=== PATIENT | male | born 1960 | race Caucasian/White ===

== ENCOUNTER → 2016-09-29 | Outpatient (CLI) | payer BC ==
[~2016-09-29] MED LIST: ASPI81TA28 PO; ATOR10TA88 PO; COEN1CAP7 PO; MULT-506 PO; OMEG10007 PO
[2016-09-29 12:48] LABS: ALT/SGPT 44 U/L (12-78); AST/SGOT 16 U/L (15-37); BLOOD UREA NITROGEN 17 mg/dl (7-18); BUN/CREATININE RATIO 18.7 (10-20); CALCIUM 8.7 mg/dl (8.5-10.1); CARBON DIOXIDE 26 mmol/L (21-32); CHLORIDE 106 mmol/L (98-107); CHOLESTEROL 140 mg/dl (0-200); GLUCOSE 100 mg/dl (70-99); POTASSIUM 4.4 mmol/L (3.5-5.1); SODIUM 142 mmol/L (136-145); TRIGLYCERIDES 105 mg/dl (0-150); VERY LOW DENSITY LIPOPROT CALC 21 mg/dl
[2016-09-29 12:51] LABS: ALB/GLOB RATIO 1.2 (0.9-2); ALKALINE PHOSPHATASE 56 U/L (45-117); CHOLESTEROL/HDL RATIO 2.6; HDL CHOLESTEROL 54 mg/dl; LDL CHOLESTEROL CALCULATED 65 mg/dl
== END | disposition home or self-care (01) ==
LOC: C.LABBFT 07:55
PROVIDERS: ATTEND Internal Medicine
DX: E78.5 Hyperlipidemia, unspecified (principal); E55.9 Vitamin D deficiency, unspecified

== ENCOUNTER 2018-10-08 06:30 | Inpatient (IN) ==
--- NOTE | 2018-09-08 09:56 | Anesthesiology Consultation ---
Date of Service September 08, 2018 Assessment & Plan (1) Encounter for pre-operative examination: Chart Review Chart Review: Acceptable Risk for Surgery and Patient seen in Pre Admission Testing Teaching & Discussion Instructed NPO after midnight before surgery, except medications with 15 cc of water. Medication instructions provided according to the PAT guidelines. History Surgery Operation Date: 10/08/18 08:30 Proposed Procedures p Right Total Knee Replacement - Kirby Velez DO Height/Weight Height: 6 ft 5 in Weight: 115.9 kg Allergies Allergy/AdvReac Type Severity Reaction Status Date / Time No Known Allergies Allergy Verified 09/02/18 13:03 Medications Home Medications Medication Instructions Recorded Confirmed Last Taken aspirin 81 mg PO QPM 09/02/18 09/02/18 Unknown cholecalciferol (vitamin D3) 3 tab PO QAM 09/02/18 09/02/18 Unknown [Vitamin D3] coenzyme Q10 [Co Q-10] 200 mg PO QPM 09/02/18 09/02/18 Unknown simvastatin 10 mg PO PM 09/02/18 09/02/18 Unknown Past Medical History Medical History Hyperlipidemia takes meds d/t family history Osteoarthritis Past Surgical History Surgical History Hx of detached retina repair both Hx of hand surgery right Hx of knee surgery x3 right Past Anesthesia History No Hx of Anesthesia Complications and No Family Hx of Anesthesia Complications History of PONV No Motion Sickness Screening History of Motion Sickness: No Social History Smoking Status: Never smoker Do You Dip or Chew Tobacco: No Hx Alcohol Use: Yes alcohol intake frequency: holidays/special occasions only Hx Substance Use: No Exercise / Class Metabolic Activity II 4-5 Yardwork/Stairs/Walk up hill (no CP or SOB with 2 flights of stairs) Review of Systems Pt denies any recent chest pain, shortness of breath, palpitations, cough, fever or URI. +stomach flu late July and early august Physical Exam Vital Signs BP: 112/56 P: 83bpm SPO2: 96% RA T: 97.5 F R: 16 ENMT Mouth: + dental restorations (few crowns); no chipped teeth and no loose teeth Thyromental Distance: > or= 3.5 Finger Breadths (3.5) Mallampati Class: III Neck normal visual inspection and + thick neck; neck extension not limited Respiratory normal respiratory effort Auscultation: lungs clear to auscultation bilaterally Cardiovascular Rate/Rhythm: regular rate and regular rhythm Heart Sounds: no murmur Vessels: no carotid bruit Extremities: no edema Testing Electrocardiogram Date: 09/08/18 Findings: + NSR @ (77) NSIVCD. Compared to EKG from 10/09/11, no significant change was found. Chest X-Ray Date: 09/08/18 Findings: + NAD Laboratory Results 09/08/18 10:15 09/08/18 10:15 Blood Type A Positive 09/08/18 10:15 Antibody Screen NEGATIVE 09/08/18 10:15 PT 10.0 Seconds (9.0-12.0) 09/08/18 10:15 INR 1.0 (0.9-1.1) 09/08/18 10:15 APTT 25.6 Seconds (21.0-31.0) 09/08/18 10:15
--- NOTE | 2018-09-08 10:09 | PAT Medication Instructions ---
Medication Instructions Date of Service September 08, 2018 Home Medications aspirin 81 mg PO QPM cholecalciferol (vitamin D3) 3 tab PO QAM coenzyme Q10 [Co Q-10] 200 mg PO QPM simvastatin 10 mg PO PM STOP taking 2 weeks before surgery coenzyme Q10 [Co Q-10] 200 mg PO QPM DO NOT take the morning of surgery cholecalciferol (vitamin D3) 3 tab PO QAM Take evening before surgery aspirin 81 mg PO QPM simvastatin 10 mg PO PM *NOTHING TO EAT OR DRINK AFTER MIDNIGHT* Other Notes If you have any questions please call us at [phone] or [phone] or [phone] or [phone]
--- NOTE | 2018-09-08 10:35 | XRay Report ---
XR chest Pre-admission PA/Lat CLINICAL HISTORY: Preoperative chest COMPARISON STUDY: No previous studies for comparison. FINDINGS: The heart is normal in size. There is no failure. There is no focal pulmonary consolidation . There are no pleural effusions. There is an old right-sided rib fracture. A 1 cm density at the rig ht lateral lung base is felt to represent a summation.[ IMPRESSION: No active disease in the chest. Electronically signed by: Valentin Warner M.D. 09/08/2018 10:34 AM
[2018-09-08 10:59] LABS: Basophils # (auto) 0.04 K/uL (0-0.2); Basophils % (auto) 0.5 %; Eosinophils # (auto) 0.38 K/uL (0-0.5); Eosinophils % (auto) 4.5 %; Hematocrit (blood only) 44.5 % (42-52); Hemoglobin 13.9 g/dL (14.0-18.0); Immature Granulocytes # (auto) 0.02 K/uL (0.00-0.02); Immature Granulocytes % (auto) 0.2 %; Lymphocytes # (auto) 1.45 K/uL (1.2-3.4); Lymphocytes % (auto) 17.3 %; Mean Corpuscular Hgb Conc 31.2 g/dL (32-36); Mean Corpuscular Volume 85.9 fL (80-100); Mean Platelet Volume 9.8 fL (7.4-10.4); Monocytes # (auto) 0.62 K/uL (0.11-0.59); Monocytes % (auto) 7.4 %; Neutrophils # (auto) 5.85 K/uL (1.4-6.5); Neutrophils % (auto) 70.1 %; Platelet Count 394 K/uL (130-400); RDW Coefficient of Variation 14.8 % (11.5-14.5); RDW Standard Deviation 46.7 fL (36.4-46.3); Red Blood Count 5.18 M/uL (4.7-6.1); White Blood Count 8.36 K/uL (4.8-10.8)
[2018-09-08 11:09] LABS: Partial Thromboplastin Time 25.6 Seconds (21.0-31.0)
[2018-09-08 11:15] LABS: BUN Creatinine Ratio 10.1 (10-20); Calcium 8.9 mg/dl (8.5-10.1); Creatinine Clr Calc Pharmacy 108.7 ml/min; Est GFR (African American) 92.2; Est GFR (Non-African American) 79.5; Potassium 4.5 mmol/L (3.5-5.1)
--- NOTE | 2018-10-06 07:29 | History & Physical Report ---
Date of Service October 06, 2018 Assessment & Plan (1) Osteoarthritis of right knee: We will proceed with a right total knee arthroplasty. Postoperatively he will be started on aspirin for DVT prophylaxis and kept overnight in the hospital for postop medical management. He plans to use energy physical therapy upon discharge. Present on Admission?: Yes History of Present Illness Primary Care Provider: Amol Carter MD Bret is a pleasant 58-year-old male is been dealing with chronic increasing right knee pain for many years. He has a history of 2 patella fractures which were treated operatively by another provider. He then had a knee arthroscopy done by Dr. Sands 2011. He continues to have knee pain. Follow-up MRI of his knee in 2015 showed medial compartment arthritis and meniscus tears. I be giving him injections. Unfortunately injections are no longer helping. After failing extensive conservative treatment, he is elected to proceed with a right total knee arthroplasty. Allergies Allergy/AdvReac Type Severity Reaction Status Date / Time No Known Allergies Allergy Verified 09/02/18 13:03 Home Medications Home Medications Medication Instructions Recorded Confirmed Type aspirin 81 mg PO QPM 09/02/18 09/02/18 History cholecalciferol (vitamin D3) 3 tab PO QAM 09/02/18 09/02/18 History [Vitamin D3] coenzyme Q10 [Co Q-10] 200 mg PO QPM 09/02/18 09/02/18 History simvastatin 10 mg PO PM 09/02/18 09/02/18 History Past Med/Surg History Medical History Hyperlipidemia takes meds d/t family history Osteoarthritis Surgical History Hx of detached retina repair both Hx of hand surgery right Hx of knee surgery x3 right Social History Current Living Situation: Spouse Feels Safe at Home: Yes Safety Concerns: Feels Safe At This Time Smoking Status: Never smoker Do You Dip or Chew Tobacco: No Hx Alcohol Use: Yes Alcohol Intake Frequency: holidays/special occasions only Hx Substance Use: No Beliefs That Will Affect Care: None Preferred Language: Swazi Communication Ability: Effective
--- NOTE | 2018-10-06 07:32 | History & Physical Report ---
Date of Service October 06, 2018 Assessment & Plan (1) Osteoarthritis of right knee: We will proceed with a right total knee arthroplasty. Postoperatively he will be placed on aspirin for DVT prophylaxis. We will keep him overnight for postop medical management. He plans to use energy physical therapy upon discharge. Present on Admission?: Yes History of Present Illness Chief Complaint: Primary osteoarthritis of the right knee Primary Care Provider: Amol Carter MD Bret is a pleasant 58-year-old male is been doing chronic increasing right knee pain. He has a history of 2 patella fractures which were treated in the past by another physician. He then had a right knee scope in 2011. He continues to have knee pain. He had a follow-up MRI in 2015 which showed some medial compartment arthritis and a meniscus tear. I have given him multiple injections. Unfortunately he is still having a lot of knee pain. After failing extensive conservative treatment, he is elected proceed with a right total knee arthroplasty. Allergies Allergy/AdvReac Type Severity Reaction Status Date / Time No Known Allergies Allergy Verified 09/02/18 13:03 Home Medications Home Medications Medication Instructions Recorded Confirmed Type aspirin 81 mg PO QPM 09/02/18 09/02/18 History cholecalciferol (vitamin D3) 3 tab PO QAM 09/02/18 09/02/18 History [Vitamin D3] coenzyme Q10 [Co Q-10] 200 mg PO QPM 09/02/18 09/02/18 History simvastatin 10 mg PO PM 09/02/18 09/02/18 History Past Med/Surg History Medical History Hyperlipidemia takes meds d/t family history Osteoarthritis Surgical History Hx of detached retina repair both Hx of hand surgery right Hx of knee surgery x3 right Social History Current Living Situation: Spouse Feels Safe at Home: Yes Safety Concerns: Feels Safe At This Time Smoking Status: Never smoker Do You Dip or Chew Tobacco: No Hx Alcohol Use: Yes Alcohol Intake Frequency: holidays/special occasions only Hx Substance Use: No Beliefs That Will Affect Care: None Preferred Language: Pakistani Communication Ability: Effective Review of Systems All systems reviewed & are unremarkable except as noted in HPI & below Physical Exam 2 Constitutional: WD/WN, vitals as above Eyes: PERRL, conjunctivae normal, anicteric sclerae ENMT: external ear and nose normal, oropharynx normal Neck: trachea midline, no thyromegaly Respiratory: normal respiratory effort Cardiovascular: RRR, no murmur, no edema Gastrointestinal (Abdomen): normal bowel sounds, soft, nontender, no hepatosplenomegaly Musculoskeletal: On physical examination of the right knee there is a trace effusion. There is near full range of motion and no evidence of instability. There is significant tenderness palpation along the medial and lateral joint lines and over the distal femoral condyles. Psychiatric: A+Ox3, euthymic affect Results & Data Diagnostic Findings Radiographs of the right knee demonstrate advanced osteoarthritis with joint space narrowing osteophyte formation and [id number] articulation.
[~2018-10-08 06:30] MED LIST changes: +ACETAMINOPHEN 500 MG TAB PO SCH; -ASPI81TA28 PO; -ATOR10TA88 PO; +CEFAZOLIN 2000MG 2,000 MG/15 ML SYR IV SCH; -COEN1CAP7 PO; +FAMOTIDINE 20 MG TAB PO SCH; +GABAPENTIN 300 MG x 2 PO SCH; +LR 60ML/HR IV SCH; -MULT-506 PO; -OMEG10007 PO; +ROPIVACAINE 0.5% HCL/PF 150 MG, BUPIVACAINE 0.5% MPF 30 ML, EPINEPHrine 30MG/30ML (OR U... INFIL SCH; +TRANEXAMIC ACID 1,000 MG **IV Intra-op IV SCH; +TRANEXAMIC ACID 1,000 MG **IV Pre-op IV SCH
[2018-10-08] MEDS ORDERED: BUPIVACAINE 0.5 % 5 MG/1 ML PF 10ML VIAL ONE (06:36)
[2018-10-08] MEDS ORDERED: ROPIVACAINE 0.5% 5 MG/ML 30 ML VIAL ONE (06:37)
--- NOTE | 2018-10-08 06:42 | History & Physical Bridge Note ---
Date of Service October 08, 2018 History & Physical Bridge Note I have examined the patient, reviewed the History & Physical and in the interval since the performance of the History & Physical I have noted the following changes of clinical significance: no changes noted
[2018-10-08] MEDS: LR 500ML BOLUS, THEN 15ML/HR IV SCH ×2 (07:12→14:09)
[2018-10-08] MEDS ORDERED: PROPOFOL IV EMULSION 10 MG/ML 20 ML VIAL IV ONE (07:13)
[2018-10-08] MEDS ORDERED: LIDOCAINE HCL 2% 2 ML VIAL/AMP(20MG/ML) INFIL ONE (07:13)
[2018-10-08] MEDS ORDERED: MIDAZOLAM HCL 1 MG/ML 2ML VIAL ONE ×3 (07:14→09:25)
[2018-10-08] MEDS ORDERED: fentaNYL citrate 100 MCG/2 ML VIAL ONE (07:14)
[2018-10-08] MEDS ORDERED: ORTHO JOINT ANESTHETIC ONE (07:22)
[2018-10-08] MEDS ORDERED: POVIDONE-IODINE OP SOLN 30 ML BTL ONE (07:23)
[2018-10-08] MEDS ORDERED: PHENYLEPHRINE 100MCG/ML 5ML SYR IV PRN (08:06)
[2018-10-08] MEDS ORDERED: HYDROmorphone INJ 1 MG/ML SYRINGE IV PRN (08:06)
[2018-10-08] MEDS ORDERED: KETOROLAC 30 MG/ML VIAL IV PRN (08:06)
[2018-10-08] MEDS ORDERED: ONDANSETRON INJ 2 MG/ML 2 ML VIAL IV PRN ×2 (08:06→12:05)
[2018-10-08] MEDS ORDERED: ePHEDrine sulfate 50 MG/ML AMP IV PRN (08:06)
[2018-10-08] MEDS ORDERED: ATROPINE SULFATE 0.1 MG/ML 10ML SYR IV PRN (08:06)
--- NOTE | 2018-10-08 10:46 | Operative Report ---
Post Operative Report Pre & Post Diagnosis Operation Date: 10/08/18 08:30 Pre-Op Diagnosis: Right Knee Degenerative Joint Disease Post-Op Diagnosis: Right Knee Degenerative Joint Disease Procedure Operation Date: 10/08/18 08:30 Actual Procedures p Right Total Knee Replacement(Right) - Kirby Velez DO Surgeon Kirby Velez DO [employer] Associate Kirby Loyd PAC Estimated Blood Loss 10 Findings Consistent with Post-Op Diagnosis Specimens Right femoral and tibial bone Complications none Disposition Disposition: Recovery Room Indications Bret is a pleasant 58-year-old male who is been dealing with chronic increasing right knee pain. He has had multiple patella fractures in the past which were treated surgically. Unfortunately gone on to develop arthritis of his knee. After failing extensive conservative treatment, he is elected proceed with a right total knee arthroplasty. Description of Procedure Implants used: I used a [employer] Vanguard total knee arthroplasty system with a size 70 femur, 79 tibia, 34 patella, and a size 10 PS polyethylene bearing. All components were cemented in place with Palacos G cement. The patient arrived [facility] for the above procedure. There were seen in the preoperative holding area and the operative extremity was identified and signed. There were given a preoperative antibiotic, a spinal anesthetic and an adductor nerve block. There were taken back to the operating room and laid on the table in supine position. There were given basic sedation. The operative knee was then prepped and draped in sterile fashion. A timeout was done, and the patient and the operative extremity was properly identified. A midline incision was made directly over the patella. Dissection was taken down to the extensor mechanism. A medial parapatellar arthrotomy was used. The medial retinaculum was released and the fat pad was mostly left intact. The knee was flexed and the ACL, PCL, and meniscus were removed. A drill was sent down the center of the femoral canal followed by an intramedullary trace. Off that trace a distal femoral cutting block was placed. 9 mm was resected off the distal femur at 5 of valgus. A posterior referencing AP sizing guide was then placed on the distal femur. The femur measured to be a size 70. 2 drill holes were placed in 3 of external rotation. A 4-in-1 cutting block was then impacted into place. Anterior posterior and chamfer cuts were then made. The posterior stabilizing box guide was then impacted into place and the box was resected for the posterior stabilizing component. The proximal tibia was then exposed. A drill was sent down the center of the tibial canal followed by an intramedullary trace. Off that trace a proximal tibial resection guide was placed. The proximal tibia was then resected. The tibia measured to be a size 79. The tibial plate was then placed in the appropriate rotation and the tibia was punched. The posterior aspect of the knee was then opened up and any additional meniscus fragments and osteophytes were removed. Trial components were then placed. I used a size 10 PS polyethylene insert. The knee was brought through a full range of motion and felt to be stable. The patella was then everted and 8 mm was resected off the posterior aspect of the patella. The patella measured to be a size 34. 3 peg holes were then drilled. A trial patella was placed. The knee was once again brought through a full range of motion and felt to be stable. Trial components were then removed. The surrounding soft tissues were injected with 100 cc of an orthopedic pain control cocktail. All components were then cemented into place with Palacos G cement. The final polyethylene insert was then snapped into place and the anterior bar was locked. Once cement was dry the tourniquet was deflated. Hemostasis was obtained. A dilute betadyne lavage was then done for 3 minutes. The joint was then irrigated with normal saline solution. The medial parapatellar arthrotomy was then closed with #1 Vicryl suture and FiberWire suture. The skin was closed with 2-0 Vicryl, 3-0V lock suture, and terrie. A soft compressive dressing was placed. The patient was then transferred to a hospital bed and taken to the postanesthesia care unit in stable condition. They tolerated the procedure well. I attest to the content of the Intraoperative Record and any orders documented therein. Any exceptions are noted below.
--- NOTE | 2018-10-08 11:31 | XRay Report ---
RIGHT KNEE 2 VIEWS History: Right total knee arthroplasty. Degenerative arthritis. Postop. FINDINGS: The patient is status post a right total knee arthroplasty. The hardware is intact. No frac ture or dislocation. Skin terrie are in place. IMPRESSION: Right total knee arthroplasty. No evidence for hardware complication. Electronically signed by: Jomar Chakraborty M.D. 10/08/2018 11:30 AM
--- NOTE | 2018-10-08 11:31 | Anesthesiology Progress Note ---
Date of Service October 08, 2018 Anesthesia Post Procedure Vital Signs Vital Signs: Temp Pulse Pulse Resp BP Pulse Ox 10/08/18 11:30 73 16 103/72 98 10/08/18 11:20 77 16 106/64 98 10/08/18 11:12 36.9 C 78 16 103/66 98 10/08/18 07:22 36.4 C L 98 H 18 142/99 H 98 Pain Intensity Right Knee: Pain Intensity: 1 Notes Mental Status: alert / awake / arousable Patient Amnestic to Procedure: Yes Nausea / Vomiting: adequately controlled Pain: adequately controlled Airway Patency, RR, SpO2: stable & adequate BP & HR: stable & adequate Hydration State: stable & adequate Anesthetic Complications: no major complications apparent
[2018-10-08] MEDS ORDERED: OXYCODONE HCL IR 5 MG TAB (IMMEDIATE RELEASE) PO PRN (12:05)
[2018-10-08] MEDS ORDERED: MAGNESIUM HYDROXIDE SUSP 30 ML UDC PO PRN (12:05)
[2018-10-08] MEDS ORDERED: NALOXONE HCL 0.4 MG/1 ML VIAL/CARP IV PRN (12:05)
[2018-10-08] MEDS ORDERED: METOCLOPRAMIDE HCL INJ 5 MG/ML 2 ML VIAL IV PRN (12:05)
[2018-10-08] MEDS ORDERED: HYDROmorphone INJ 0.5 MG/0.5 ML SYR IV PRN (12:05)
[2018-10-08] MEDS ORDERED: BISACODYL 10 MG SUPP PR PRN (12:05)
[2018-10-08] MEDS: KETOROLAC 30 MG/ML VIAL IV SCH ×2 (14:05→20:26)
[2018-10-08] MEDS: ACETAMINOPHEN 500 MG TAB PO SCH ×2 (14:05→22:07)
[2018-10-08] MEDS: SODIUM CHLORIDE 0.9% 1000ML 1,000 ML IV SCH ×2 (14:06→22:07)
[2018-10-08] MEDS: CEFAZOLIN 2000MG 2,000 MG/15 ML SYR IV SCH (17:31)
[2018-10-08] MEDS: ASPIRIN 81 MG ECTAB PO SCH (20:26)
[2018-10-08] MEDS: DOCUSATE SODIUM 100 MG CAP PO SCH (20:26)
[2018-10-08] MEDS ORDERED: SENNA 8.6 MG TAB PO SCH (21:00)
[2018-10-08] MEDS ORDERED: SIMVASTATIN 10 MG TAB PO SCH (21:00)
[2018-10-09] MEDS: CEFAZOLIN 2000MG 2,000 MG/15 ML SYR IV SCH (01:37)
[2018-10-09] MEDS: KETOROLAC 30 MG/ML VIAL IV SCH ×2 (01:37→08:23)
[2018-10-09] MEDS: LR 500ML BOLUS, THEN 15ML/HR IV SCH ×2 (04:21→04:22)
[2018-10-09] MEDS: ACETAMINOPHEN 500 MG TAB PO SCH (06:20)
[2018-10-09 06:27] LABS: Hematocrit (blood only) 38.7 % (42-52); Hemoglobin 12.4 g/dL (14.0-18.0); Mean Corpuscular Volume 84.3 fL (80-100); Mean Platelet Volume 9.9 fL (7.4-10.4); Platelet Count 287 K/uL (130-400); RDW Coefficient of Variation 15.5 % (11.5-14.5); RDW Standard Deviation 47.8 fL (36.4-46.3); Red Blood Count 4.59 M/uL (4.7-6.1); White Blood Count 14.77 K/uL (4.8-10.8)
[2018-10-09 07:10] LABS: BUN Creatinine Ratio 15.9 (10-20); Creatinine Clr Calc Pharmacy 121.6 ml/min; Est GFR (African American) 107.2; Est GFR (Non-African American) 92.5
[2018-10-09] MEDS: DOCUSATE SODIUM 100 MG CAP PO SCH (08:23)
[2018-10-09] MEDS: ASPIRIN 81 MG ECTAB PO SCH (08:24)
--- NOTE | 2018-10-09 08:41 | Orthopedic Progress Note ---
Date of Service October 09, 2018 Assessment & Plan (1) Osteoarthritis of right knee: Overall he is doing very well. Is not having much pain in the right knee. He is on aspirin for DVT prophylaxis. He will be seen by physical therapy again this morning. As long she is doing well he can be discharged home. He will follow-up with orthopedics in 2 weeks. Present on Admission?: Yes Subjective Bret was seen and examined at bedside this morning. Overall he is doing very well. Is not having much pain in the knee. He was up and ambulating around the nurses station last night. He was able to get some sleep and has no complaints. Physical Exam 2 Vital Signs (Past 24 Hours): Last Vital Signs Temp 36.4 C L 10/09/18 07:27 Pulse 76 10/09/18 04:19 Resp 18 10/09/18 07:27 BP 119/75 10/09/18 07:27 Pulse Ox 95 10/09/18 07:27 Musculoskeletal: On physical examination of the right knee, the dressing is clean and dry. His legs out in full extension. He has active dorsiflexion and plantarflexion of his right ankle. Sensation is intact throughout. Results & Data Laboratory Results H & H 09/08/18 10/09/18 Range/Units 10:15 05:53 Hgb 13.9 L 12.4 L (14.0-18.0) g/dL Hct 44.5 38.7 L (42-52) % Coagulation 09/08/18 Range/Units 10:15 INR 1.0 (0.9-1.1) Diagnostic Findings X-rays postoperatively of the right knee show the prosthesis to be in anatomic alignment without any evidence of fracture, dislocation, or loosening.
--- NOTE | 2018-10-09 08:42 | Discharge Summary ---
Date of Service October 09, 2018 Admission HPI Per Admitting Provider Bret mariscal a pleasant 58-year-old male is been doing chronic increasing right knee pain. He has a history of 2 patella fractures which were treated in the past by another physician. He then had a right knee scope in 2011. He continues to have knee pain. He had a follow-up MRI in 2015 which showed some medial compartment arthritis and a meniscus tear. I have given him multiple injections. Unfortunately he is still having a lot of knee pain. After failing extensive conservative treatment, he is elected proceed with a right total knee arthroplasty. Specialty Data Orthopedic H & H 09/08/18 10/09/18 Range/Units 10:15 05:53 Hgb 13.9 L 12.4 L (14.0-18.0) g/dL Hct 44.5 38.7 L (42-52) % Coagulation 09/08/18 Range/Units 10:15 INR 1.0 (0.9-1.1) Discharge Data Consultations 10/08/18 12:05 Consult Case Management - Discharge Planning Routine Procedures Performed Operation Date: 10/08/18 08:30 Actual Procedures p Right Total Knee Replacement(Right) - Kirby Velez, Hospital Course (1) Osteoarthritis of right knee: On October 08, 2018 Fredrick arrived at [facility] and underwent a right total knee arthroplasty without complication. He had a spinal anesthetic and a right adductor nerve block. Postoperatively he was started on aspirin for DVT prophylaxis and discharged to general orthopedic floors. His hospital course is uneventful. On postop day #1 his H&H was stable and his pain was well controlled. He was participating well with physical therapy doing range of motion exercises. He was discharged home with physical therapy. He will follow-up with orthopedics in 2 weeks. Discharge Instructions Home Medications Medication Instructions Recorded Confirmed aspirin 81 mg PO QPM 09/02/18 10/08/18 cholecalciferol (vitamin D3) 3 tab PO QAM 09/02/18 10/08/18 [Vitamin D3] coenzyme Q10 [Co Q-10] 200 mg PO QPM 09/02/18 10/08/18 simvastatin 10 mg PO PM 09/02/18 10/08/18 Previous Rx's Medication Instructions Recorded aspirin [Ecotrin Low Strength] 81 mg PO BID #84 tab 10/09/18 hydrocodone-acetaminophen 1 tab PO Q6H PRN #40 tab 10/09/18
[2018-10-09] MEDS ORDERED: MULTIVITAMIN TAB PO SCH (09:00)
== END 2018-10-09 13:41 | disposition home or self-care (01) | DRG 470 ==
LOC: ASU 06:30 → 3E 10:49